=== PATIENT | male | born 1985 | race Caucasian/White ===

== ENCOUNTER 2023-07-02 08:29 | Outpatient (CLI) | payer OTHER ==
--- NOTE | 2023-07-02 09:17 | Sleep Patient Instructions ---
Sleep Center Visit Summary - Patient Visit Information Reason for Visit: Initial consult for evaluation of sleep disordered breathing and other sleep issues. - Patient Instructions Instructions Attached: Sleep Study Additional Instructions: You will be completing a sleep study, either an in-lab polysomnography (PSG) or home sleep study (HST). You will follow-up in the sleep care office after the sleep study is completed to hear the results and talk about therapy, if needed. You will be called by our office staff to schedule this appointment, but you may contact us with any questions. - Clinic Information Contact: [facility] [address] [place] [address] [email or web address] T: [phone]
--- NOTE | 2023-07-02 09:22 | SLEEP CARE CONSULTATION ---
Information from patient questionnaire entered by Erasmo Douglas. I have reviewed and concur with the information entered by Erasmo Douglas. This document represents the service I personally performed and the decisions made by me, Senait Florence ARNP. History of Present Illness Service Date and Time: 07/02/2023828 Reason for Visit: New patient, Previously diagnosed sleep apnea Chief Complaint: reports: Snoring, Observed pauses in breathing, Frequent awakenings at night Date of Onset: 10 years Usual bedtime: 10 PM, but varies with shift work Time it takes to fall asleep: 10 minutes Snores at night: Yes Observed to quit breathing while asleep: Yes Sleeps alone due to snoring: No Number of times waking at night: 1-3 Reasons for waking at night: reports: Snoring, Other (Unknown reason). denies: Choking, Gasping for air Toss, Turn, or Twitch while sleeping: Yes Recalls having dreams: Yes Usually gets out of bed at: 5 AM but varies with shift work Feels refreshed in the morning: Yes Morning headache: No Sleepy or fatigued during the day: No Ever fallen asleep while driving: No Takes day naps: No Dreams during day naps: No Prior sleep studies: Yes Year and Where: [facility] 2009 Additional HPI information: I had the pleasure of seeing CHRISTIANO FIGUEROA today regarding the possibility of him having a sleep disorder. His current complaints are frequent night awakenings, observed pauses in breathing and snoring. He was previously diagnosed with severe sleep apnea about 14 years ago and had surgery to remove uvula, tonsils, etc. He had resolution of snoring and other symptoms at that time. He developed a swallowing issue but this also resolved after an upper endoscopy that he had 6 months ago. He says he has a return of loud snoring, has pauses in breathing and waking up frequently occasionally, 0-3 times. He says he wakes feeling rested. He says he is a morning person once he gets out of bed. He says his work schedule rotates from days, second shift and nights with 2 week intervals. He feels he sleeps well despite his work schedule. - Parasomnia Symptoms Ever been unable to move upon waking from sleep: No Walks in sleep: No Talks in sleep: Yes Ever acted out dreams in sleep: No Ever felt weak in the knees when startled or emotional: No Bothered by creepy, crawly, restless sensations in legs: No Problems with memory or concentration: No Subjective Initial [place] Sleepiness Scale score: 3 (in 2023) Past Medical History Past Medical History: reports: Hypothyroidism, Other (seizures due to synthroid dosing) Social History The patient's occupation is a active duty . Patient is and lives in [place]. Have you smoked in the past 12 months: No Alcohol use: Yes Alcohol amount and frequency: Not much, not often Caffeine use: Yes Caffeine amount and frequency: 3-4 cups coffee daily Family History Family history of sleep disordered breathing: Yes Family Hx Sleep Apnea: Mother: Sleep apnea - Treated Allergies and Home Medications Known drug allergies: No Drug allergies reviewed: Yes Home medication list reviewed: Yes (as listed) Allergy and home medication list: Allergies No Known Drug Allergies Allergy (Verified 07/02/23 09:08) Home Medications Synthroid 200 mcg ORAL DAILY 07/02/23 [History] Review of Systems Weight gain over past 5 years: 10 Cardiovascular: denies: high blood pressure Gastrointestinal: denies: heartburn Neurological: reports: seizure (related to synthroid) Psychiatric: denies: anxiety, depression Ear/Nose/Throat: reports: tonsillectomy Endocrine: reports: thyroid disease Immunologic: reports: sneezing (/runny nose), allergies to food or environment (seasonal) Physical Exam Vital signs obtained and entered by: Senait Haro NP Blood Pressure: 127/89 Cuff size: long (right arm) Heart Rate: 70 O2 Saturation: 97 Height: 5 ft 11 in Weight: 201 lb 9.6 oz Body Mass Index: 28.0 BMI Classification: Overweight Neck circumference: 15.5 (inches) Mouth and throat: narrow oropharynx Soft palate: long Hard palate: normal Uvula visualization: 25% Mallampati Class III Tongue: enlarged in size with teeth rios on lateral edges Tonsils: absent bilaterally Neck: normal w/o lymphadenopathy or thyromegaly Heart: regular rate and rhythm Lungs: clear bilaterally Impression and Plan 1. Suspected Obstructive Sleep Apnea-Hypopnea Syndrome, as previously diagnosed and as suggested by a history of loud and irregular snoring, observed cessation of breath while asleep and frequent awakening during the night. I recommend proceeding to polysomnography to confirm the diagnosis and to assess severity. If the patient has significant sleep disordered breathing, a manual CPAP titration study will also be performed to find the optimal treatment pressure. I informed the patient of what the sleep studies involve and after some discussion, obtained agreement to proceed. The pathophysiology of obstructive sleep apnea-hypopnea syndrome was discussed with the patient and health risks of cardiovascular and cerebrovascular disease if not treated. Risks of drowsy driving discussed in detail and patient advised to avoid long distance driving and to puller machine at the first sign of drowsiness. Patient agreed to plan. * Schedule polysomnography +- manual CPAP titration study and return in 1-2 weeks after the study to discuss result and initiate therapy. * Avoid long distance driving or driving when feeling sleepy. * Avoid alcohol, sedative and muscle relaxant around bedtime. * Attempt to lose weight. * Review instructions provided by trained office staff on how to prepare for the sleep study. * Return for follow-up after sleep study completed. Counseling Topics: Weight loss health impact Follow up with Sleep Care in: other (after sleep study) Plan: PSG/HST Visit Type: In Office Location of Provider: Office Time Spent with Patient (minutes): 32 Provider Statement: I spent 100% of the Face to Face Visit with the patient with greater than 50% spent counseling the patient and coordination of care.
[2023-07-02 09:28] VITALS: BP 127/89; O2SAT 97
== END 2023-07-02 08:30 | disposition home or self-care (01) ==
LOC: SC 08:29
PROVIDERS: ATTEND Nurse Practitioner Family
DX: R06.83 Snoring (principal); R06.81 Apnea, not elsewhere classified; G47.8 Other sleep disorders; E66.3 Overweight; Z68.28 Body mass index [BMI] 28.0-28.9, adult
CPT/HCPCS: 99203; 99212

== ENCOUNTER 2023-07-26 19:29 | Outpatient (CLI) | payer OTHER | END 2023-07-26 19:30 | disposition home or self-care (01) | LOC: SC 19:29 | PROVIDERS: ATTEND Nurse Practitioner Family | DX: G47.61 Periodic limb movement disorder (principal) | CPT/HCPCS: 95810 ==

== ENCOUNTER 2023-08-19 09:00 | Outpatient (CLI) | payer OTHER ==
--- NOTE | 2023-08-19 09:24 | Sleep Patient Instructions ---
Sleep Center Visit Summary - Patient Visit Information Reason for Visit: Sleep study follow-up - Patient Instructions Instructions Attached: Snoring Tips Prevent Additional Instructions: Your sleep study today was negative for significant sleep disordered breathing. However, you did have elevated respiratory episodes when sleeping on your back. You should avoid sleeping on your back to control these respiratory episodes. You were found to have episodes of snoring. There are different ways to control snoring including weight loss, oral devices made by a dentist or surgical options through ENT specialist. You should not use oral devices that do not fit properly because they can affect your bite. You should also check insurance coverage of oral devices for snoring because they may not be cover well. You may obtain a referral to an ENT specialist through your primary provider. You also has leg movements of sleep that you may return to your primary provider for further evaluation as needed. Follow-up as needed. - Clinic Information Contact: [facility] [address] [place] [address] [email or web address] T: [phone]
--- NOTE | 2023-08-19 09:27 | SLEEP CARE CONSULTATION ---
Information from patient questionnaire entered by Pilar Vinson. I have reviewed and concur with the information entered by Pilar Vinson. This document represents the service I personally performed and the decisions made by , Senait Florence ARNP. History of Present Illness Service Date and Time: 08/19/2023 0900 Initial [place] Sleepiness Scale score: 3 (in 2023) Current [place] Sleepiness Scale score: 2 Additional HPI information: CHRISTIANO FIGUEROA returns for follow up and results of the recently performed polysomnography. The patient was informed of the following findings: No significant sleep disordered breathing with an average AHI of 2.8 and leah oxygen saturation of 86%. He has supine AHI of 5 and moderate PLMs not contributing to sleep fragmentation. I explained the pathophysiology behind obstructive sleep apnea. Patient does not have sleep apnea and was advised how weight gain could increase the risk of developing sleep apnea in the future. I strongly encouraged the patient to lose weight. Patient does not have significant sleep disordered breathing but has elevated AHI in supine position so advised positional therapy. Methods to achieve positional management therapy were discussed; such as, positioning with pillows, wearing a T-shirt with tennis balls sewn into the back or commercially available products. Patient has loud snoring. Snoring can be reduced by weight loss. Weight loss is best achieved with diet consult. Patient instructed to contact PCP for referral. Snoring can also be treated with an oral appliance from a dentist. Advised to check insurance coverage. In addition, an ENT evaluation can be do to see if other treatment is indicated. Patient does not drink alcohol. Patient was cautioned about risks of drowsy driving until sleepiness symptoms resolve. Patient denies drowsy driving. Sleep Study - Results Type of Sleep Study: Polysomnography (COMPLETED 07/26/23) Prior sleep studies: Yes Year and Where: [place], [facility] 2009 Polysomnography/Home Sleep Study results: IMPRESSION: The quality of the study is good. The patient had normal sleep efficiency. The sleep architecture was also normal. Respiratory monitoring showed no significant sleep disordered breathing (AHI = 2.8) or hypoxia (leah oxygen saturation of 86% and only < 0.1% to the total sleep time was spent with oxygen saturation below 90%). The few respiratory events occurred mainly during supine REM sleep (supine AHI = 5.0; non-supine = 1.68). Snore was loud in intensity. There was moderate periodic leg movement of sleep not associated with sleep fragmentation. Cardiac rhythm was normal sinus rhythm without significant arrhythmia. No abnormal behavior (parasomnia) observed during the night. Allergies and Home Medications Known drug allergies: No Drug allergies reviewed: Yes Home medication list reviewed: Yes (as listed) Allergy and home medication list: Allergies No Known Drug Allergies Allergy (Verified 08/17/23 09:00) Home Medications Medication Instructions Recorded Confirmed Last Taken Type Synthroid 200 mcg ORAL DAILY 07/02/23 08/19/23 Unknown History Review of Systems Review of systems same as previous: Yes (no changes) Physical Exam Vital signs obtained and entered by: SENAIT MILLER-Junior Blood Pressure: 126/88 Cuff size: regular (left arm) Heart Rate: 83 O2 Saturation: 97 Height: 5 ft 11 in Weight: 202 lb 3.2 oz Body Mass Index: 28.2 BMI Classification: Overweight Impression and Plan 1. Snoring but no significant sleep disordered breathing. However, he had minimally elevated supine AHI and should avoid supine sleep. Patient advised that often weight loss will reduce snoring as well as apnea risk. An oral appliance can also be used for snoring. This would require a dental consultation. Patient cautioned not to use other online appliances as can cause bite issues. Patient is advised to check if insurance will cover. An ENT consult can also be helpful to determine if any other treatment is an option. 2. Periodic limb movement, moderate, that did not fragment patients sleep. Periodic limb movement of sleep (PLMS) is characterized by episodes of repetitive limb movements that occur during sleep and usually involve the lower limbs. The etiology is unknown. Caffeine can also aggravate PLMS and should be avoided. Sleep hygiene methods can also improve sleep as well as lifestyle changes such as regular exercise. Patient was advised that no treatment is needed at this time. If symptoms increase, then further evaluation is indicated. 3. Overweight, unspecified. Currently patients BMI is 28.2. Obesity increases the risk of apnea, CPAP pressure requirements and overall health risks especially cardiovascular and diabetes. Thus patient is advised to lose weight. * Avoid supine sleep * Attempt to lose weight * The patient is cautioned about driving when sleepy * Return as needed for follow up. Counseling Topics: Sleeping position, Weight loss health impact Follow up with Sleep Care in: as needed Follow up recommended for: PLMS Visit Type: In Office Time Spent with Patient (minutes): 20 Provider Statement: I spent 100% of the Face to Face Visit with the patient with greater than 50% spent counseling the patient and coordination of care.
[2023-08-19 09:46] VITALS: BP 126/88; O2SAT 97
== END 2023-08-19 09:01 | disposition home or self-care (01) ==
LOC: SC 09:00
PROVIDERS: ATTEND Nurse Practitioner Family
DX: R06.83 Snoring (principal); G47.61 Periodic limb movement disorder; E66.3 Overweight; Z68.28 Body mass index [BMI] 28.0-28.9, adult
CPT/HCPCS: 99212; 99213